=== PATIENT | male | born 1945 | race Two or more races ===

== ENCOUNTER 2023-10-10 13:08 | Inpatient (IN) | payer OTHER ==
[~2023-10-10] VITALS: Ht 172.7 cm; Wt 57.6 kg
[~2023-10-10 13:08] MED LIST: AMIT50TA10 PO; AMLO1TAB22 PO; ATEN-60 PO; ATOR20TA PO; BIOF500C2 PO; CHOL20007 OR; DOCU100T15 PO; DULO20CA PO; HYDR-3547 OR; HYDR25TA4 PO; LOSA100T58 PO; QUET300T24 PO; SENN-36 PO
[2023-10-10 14:10] LABS: Basophils # (auto) 0 10 ^3/uL (0-0.2); Basophils % (auto) 0.3 % (0.0-2.0); Eosinophils # (auto) 0 10 ^3/uL (0-0.8); Eosinophils % (auto) 0.1 % (0.0-7.0); Hematocrit 29.3 % (41.0-53.0); Hemoglobin 9.6 g/dL (13.5-17.5); Lymphocytes # (auto) 0.3 10 ^3/uL (0.4-5.4); Lymphocytes % (auto) 4.4 % (10.0-50.0); Mean Corpuscular Hemoglobin 27.8 pg (28.0-32.0); Mean Corpuscular Hgb Conc. 32.7 g/dL (32.0-36.0); Mean Corpuscular Volume 85.1 fL (80.0-100.0); Monocytes # (auto) 0.3 10 ^3/uL (0-1.3); Monocytes % (auto) 4.2 % (0.0-12.0); Neutrophils # (auto) 6.9 10 ^3/uL (1.6-8.6); Red Blood Cells 3.44 10^6/uL (4.5-5.90); Red Cell Distribution Width 16.1 % (11.8-14.3); White Blood Cell 7.5 10^3/uL (4.4-10.8)
[2023-10-10 14:23] LABS: Alanine Aminotransferase 15 U/L (7-40); Albumin 4.1 g/dL (3.2-4.8); Alkaline Phosphatase 83 U/L (46-116); Anion Gap 12 (5-15); Aspartate Aminotransferase 13 U/L (13-40); BUN/Creatinine Ratio 8.4 (10.0-20.0); Blood Alcohol 8.3 mg/dL (<10); Blood Urea Nitrogen 56 mg/dL (9-23); Calcium 8.4 mg/dL (8.7-10.4); Carbon Dioxide 26 mmol/L (20-30); Chloride 101 mmol/L (98-107); Glucose 198 mg/dL (74-106); Magnesium 2.1 mg/dL (1.6-2.6); Potassium 5.3 mmol/L (3.5-5.1); Sodium 139 mmol/L (136-145)
[2023-10-10 14:24] LABS: Bilirubin, Total 0.8 mg/dL (0.2-1.0); Total Protein 6.7 g/dL (5.7-8.2)
[2023-10-10 14:30] VITALS: PULSE 75; RESP 24; O2SAT 95
[2023-10-10] MEDS ORDERED: FUROSEMIDE 40 MG/4 ML VIAL IV ONE (14:30)
[2023-10-10 14:32] LABS: INR 1.23 (0.9-1.15); Partial Thromboplastin Time 36.2 SEC (24.5-34.5); Prothrombin Time 12.7 sec (9.3-11.8)
[2023-10-10 16:02] LABS: Base Excess -1.5 mmol/L (-2.0-2.0)
[2023-10-10] MEDS ORDERED: ETOMIDATE (2MG/ML) 20ML VIAL IV ONE (16:15)
[2023-10-10] MEDS ORDERED: MIDAZOLAM DRIP 50 mg/50mL 50 ML IV SCH (16:15)
[2023-10-10] MEDS ORDERED: MIDAZOLAM HCL 2MG/2ML 2ml VIAL (1mg/ml) ONE (16:18)
[2023-10-10] MEDS ORDERED: MIDAZOLAM HCL 2MG/2ML 2ml VIAL (1mg/ml) IV ONE (16:30)
[2023-10-10] MEDS: MIDAZOLAM DRIP 50 mg/50mL 50 ML IV SCH ×2 (16:30→19:00)
[2023-10-10 17:20] LABS: Urine Bacteria NONE SEEN /hpf (None Seen); Urine Blood 1+ /uL (Negative); Urine Clarity Clear (Clear); Urine Color Yellow (Yellow); Urine Protein, UAD 3+ (Negative); Urine Specific Gravity 1.012 (1.001-1.035); Urine Sperm PRESENT /hpf (None Seen); Urine Urobilinogen Normal (Negative); Urine WBC 3 /hpf (0 - 3)
[2023-10-10 17:23] LABS: Amphetamine Screen, Urine Neg (NEGATIVE); Barbiturate Scree,Urine Neg (NEGATIVE); Benzodiazephine Screen, Urine Neg (NEGATIVE); Cannabinoid Screen, Urine Neg (NEGATIVE); Cocaine Screen, Urine Neg (NEGATIVE); Opiate Scree,Urine Neg (NEGATIVE); Phencyclidine Screen, Urine Neg (NEGATIVE)
[2023-10-10 17:44] LABS: Base Excess 2.6 mmol/L (-2.0-2.0)
[2023-10-10 17:55] VITALS: BP 126/64; PULSE 54; RESP 24; O2SAT 100
[2023-10-10 18:20] VITALS: O2SAT 100
[2023-10-10 19:30] VITALS: PULSE 55; RESP 24; O2SAT 100
[2023-10-10 20:05] VITALS: BP 144/39; PULSE 55; RESP 24; O2SAT 100
[2023-10-10] MEDS ORDERED: fentaNYL CITRATE 100 MCG/2 ML VL IV ONE (20:15)
[2023-10-10] MEDS ORDERED: DEXTROSE (50%) 50ML SYRG IV PRN (20:45)
[2023-10-10] MEDS ORDERED: NITROGLYCERIN 0.4 MG SL TAB SL PRN (20:45)
[2023-10-10] MEDS ORDERED: MORPHINE SULFATE INJ 2 MG/ml SYRG IV PRN (20:45)
[2023-10-10] MEDS: DOXYCYCLINE 100MG/250ML 250 ML IV SCH (21:35)
[2023-10-10] MEDS: InsuLIN REG 1unit/0.01ml Soln (100units/ml) SC SCH (22:00)
[2023-10-10 22:01] VITALS: BP 179/34; PULSE 54; RESP 24; O2SAT 100
[2023-10-10] MEDS: fentaNYL Drip 2500mCg/250mlNS 250 ML IV SCH (22:11)
[2023-10-10] MEDS: ACCU-CHEK COMFORT CURVE STRIP VI SCH (22:17)
[2023-10-10] MEDS: hydrALAZINE HCL 20 MG/ML VL IV PRN (22:33)
[2023-10-10 22:37] LABS: COVID19 ANTIGEN SOFIA FIA NEGATIVE (NEGATIVE); Rapid Influenza A Negative (Negative); Rapid Influenza B Negative (Negative)
[2023-10-11] VITALS (80 sets, daily range): BP systolic 100–151; BP diastolic 31–52; PULSE 45–59; RESP 6–24; TEMP 96.4–99.3; O2SAT 96–100
[2023-10-11] MEDS: MIDAZOLAM DRIP 50 mg/50mL 50 ML IV SCH ×6 (00:05→20:26)
[2023-10-11] MEDS ORDERED: FUROSEMIDE 20 MG/2 ML VIAL IV SCH (06:00)
[2023-10-11 06:18] LABS: Hemoglobin 7.5 g/dL (13.5-17.5); Mean Corpuscular Hgb Conc. 32.9 g/dL (32.0-36.0); Nucleated Red Blood Cells % 0.1 %; Red Cell Distribution Width 15.9 % (11.8-14.3); White Blood Cell 5.2 10^3/uL (4.4-10.8)
[2023-10-11 06:22] LABS: Basophils # (auto) 0 10 ^3/uL (0-0.2); Basophils % (auto) 0.8 % (0.0-2.0); Eosinophils # (auto) 0 10 ^3/uL (0-0.8); Eosinophils % (auto) 0.4 % (0.0-7.0); Hematocrit 22.8 % (41.0-53.0); Lymphocytes # (auto) 0.9 10 ^3/uL (0.4-5.4); Lymphocytes % (auto) 17.6 % (10.0-50.0); Monocytes # (auto) 0.4 10 ^3/uL (0-1.3); Monocytes % (auto) 7.1 % (0.0-12.0); Neutrophils # (auto) 3.9 10 ^3/uL (1.6-8.6); Neutrophils % (auto) 74.1 % (37.0-80.0); Red Blood Cells 2.68 10^6/uL (4.5-5.90)
[2023-10-11 06:36] LABS: Alkaline Phosphatase 57 U/L (46-116); Anion Gap 11 (5-15); Aspartate Aminotransferase 9 U/L (13-40); BUN/Creatinine Ratio 6.5 (10.0-20.0); Blood Urea Nitrogen 49 mg/dL (9-23); Calcium 7.7 mg/dL (8.7-10.4); Carbon Dioxide 25 mmol/L (20-30); Chloride 103 mmol/L (98-107); Glucose 82 mg/dL (74-106); Potassium 4.3 mmol/L (3.5-5.1); Sodium 139 mmol/L (136-145)
[2023-10-11 06:37] LABS: Bilirubin, Total 0.7 mg/dL (0.2-1.0); Total Protein 5.2 g/dL (5.7-8.2)
[2023-10-11] MEDS: InsuLIN REG 1unit/0.01ml Soln (100units/ml) SC SCH ×4 (06:45→22:00)
[2023-10-11] MEDS: ACCU-CHEK COMFORT CURVE STRIP VI SCH ×4 (06:45→22:00)
[2023-10-11 06:52] LABS: Alanine Aminotransferase < 9 U/L (7-40)
[2023-10-11] MEDS ORDERED: SODIUM CHL 0.9% 1000 ML BAG XX ONE (07:00)
[2023-10-11 08:01] LABS: Base Excess 2.6 mmol/L (-2.0-2.0)
[2023-10-11] MEDS: FUROSEMIDE 20 MG/2 ML VIAL IV SCH ×3 (10:00→17:50)
[2023-10-11] MEDS ORDERED: ENOXAPARIN SOD 30 MG/0.3 ML SYRINGE SC SCH (10:00)
[2023-10-11] MEDS ORDERED: cefTRIAXone 1GM/50ML D5W 50 ML IV ONE (10:35)
[2023-10-11] MEDS: PANTOPRAZOLE 40 MG/10 ML VIAL INJ IV SCH (11:19)
[2023-10-11] MEDS: cefTRIAXone 1GM/50ML D5W 50 ML IV SCH (11:22)
[2023-10-11 11:35] LABS: Base Excess 3.6 mmol/L (-2.0-2.0)
[2023-10-11] MEDS: DOXYCYCLINE 100MG/250ML 250 ML IV SCH ×2 (11:36→20:26)
[2023-10-11] MEDS: IPRATROPIUM BROM 0.5 MG/2.5ML INH SOL NEB SCH ×2 (11:46→18:33)
[2023-10-11] MEDS: ALBUTEROL SULF 2.5 MG/0.5ML(0.5%) NEB SOLN NEB SCH ×2 (11:46→18:33)
[2023-10-11 12:20] LABS: Triglycerides 76 mg/dL (< 150)
[2023-10-11 12:21] LABS: LDL Cholesterol 39 mg/dL (< 100)
[2023-10-11 12:22] LABS: Cholesterol 92 mg/dL (< 200); HDL Cholesterol 35 mg/dL (40-59)
[2023-10-11] MEDS ORDERED: ALBUMIN 25% 100 ML IV ONE ×3 (14:00→14:15)
[2023-10-11] MEDS ORDERED: EPOETIN ALFA-EPBX 4,000 UNIT/ML VIAL SC ONE (21:00)
[2023-10-11] MEDS: SODIUM FERR GLUC 62.5MG/5ML 125 MG in SODIUM CHL 0.9% 100 ML IV SCH (21:00)
[2023-10-11 21:03] LABS: Triglycerides 100 mg/dL (< 150)
[2023-10-11 21:04] LABS: LDL Cholesterol 44 mg/dL (< 100)
[2023-10-11 21:05] LABS: Cholesterol 99 mg/dL (< 200); HDL Cholesterol 31 mg/dL (40-59)
[2023-10-11] MEDS: fentaNYL Drip 2500mCg/250mlNS 250 ML IV SCH (21:45)
[2023-10-12] VITALS (107 sets, daily range): BP systolic 105–158; BP diastolic 27–87; PULSE 56–109; RESP 11–22; TEMP 97.5–99.3; O2SAT 96–100
[2023-10-12] MEDS: IPRATROPIUM BROM 0.5 MG/2.5ML INH SOL NEB SCH ×4 (00:09→18:32)
[2023-10-12] MEDS: ALBUTEROL SULF 2.5 MG/0.5ML(0.5%) NEB SOLN NEB SCH ×4 (00:09→18:32)
[2023-10-12] MEDS: MIDAZOLAM DRIP 50 mg/50mL 50 ML IV SCH ×4 (01:44→16:18)
[2023-10-12 03:59] LABS: Basophils # (auto) 0 10 ^3/uL (0-0.2); Eosinophils # (auto) 0.1 10 ^3/uL (0-0.8); Lymphocytes # (auto) 0.7 10 ^3/uL (0.4-5.4); Mean Corpuscular Volume 85.1 fL (80.0-100.0); Monocytes # (auto) 0.4 10 ^3/uL (0-1.3); Monocytes % (auto) 6.6 % (0.0-12.0); Red Cell Distribution Width 15.6 % (11.8-14.3); White Blood Cell 6.7 10^3/uL (4.4-10.8)
[2023-10-12 04:02] LABS: Basophils % (auto) 0.4 % (0.0-2.0); Eosinophils % (auto) 1.3 % (0.0-7.0); Hematocrit 24.1 % (41.0-53.0); Lymphocytes % (auto) 10.3 % (10.0-50.0); Mean Corpuscular Hemoglobin 28.1 pg (28.0-32.0); Neutrophils # (auto) 5.4 10 ^3/uL (1.6-8.6); Neutrophils % (auto) 81.4 % (37.0-80.0); Red Blood Cells 2.83 10^6/uL (4.5-5.90)
[2023-10-12 04:04] LABS: Chloride 101 mmol/L (98-107); Potassium 4.7 mmol/L (3.5-5.1); Sodium 140 mmol/L (136-145)
[2023-10-12 04:05] LABS: Anion Gap 16 (5-15); Carbon Dioxide 23 mmol/L (20-30)
[2023-10-12 04:06] LABS: Calcium 8.5 mg/dL (8.5-10.1)
[2023-10-12 04:10] LABS: Glucose 85 mg/dL (74-106); INR 1.23 (0.9-1.15); Partial Thromboplastin Time 44.8 SEC (24.5-34.5); Prothrombin Time 12.7 sec (9.3-11.8)
[2023-10-12 04:11] LABS: Blood Urea Nitrogen 60 mg/dL (9-23)
[2023-10-12 04:12] LABS: % Iron Saturation 23.4 % (20-55)
[2023-10-12] MEDS: FUROSEMIDE 20 MG/2 ML VIAL IV SCH ×2 (05:50→17:30)
[2023-10-12] MEDS: ACCU-CHEK COMFORT CURVE STRIP VI SCH ×4 (05:50→22:25)
[2023-10-12] MEDS: InsuLIN REG 1unit/0.01ml Soln (100units/ml) SC SCH ×4 (05:55→22:00)
[2023-10-12 07:46] LABS: Base Excess -1.4 mmol/L (-2.0-2.0)
[2023-10-12] MEDS: cefTRIAXone 1GM/50ML D5W 50 ML IV SCH (09:03)
[2023-10-12] MEDS: DOXYCYCLINE 100MG/250ML 250 ML IV SCH ×2 (09:06→22:25)
[2023-10-12] MEDS ORDERED: ENOXAPARIN SOD 30 MG/0.3 ML SYRINGE SC SCH (10:00)
[2023-10-12] MEDS ORDERED: AMIODARONE HCL 200 MG TAB PO ONE (10:45)
[2023-10-12] MEDS ORDERED: LIDOCAINE 1% (LOCAL ANESTH.) PF 5ml SDV ONE (10:49)
[2023-10-12] MEDS: PANTOPRAZOLE 40 MG/10 ML VIAL INJ IV SCH (11:09)
[2023-10-12] MEDS: SODIUM FERR GLUC 62.5MG/5ML 125 MG in SODIUM CHL 0.9% 100 ML IV SCH (12:09)
[2023-10-12 12:49] LABS: Body Fluid Polymorphonuclear 10 % (0-25); Body Fluid Red Blood Cells 170 CUMM (0-2000); Body Fluid White Blood Cells 25 CUMM (0-200)
[2023-10-12] MEDS: DexmedeTOMIDine 200 MCG in D5W 5% 48 ML IV SCH (13:00)
[2023-10-12] MEDS: fentaNYL Drip 2500mCg/250mlNS 250 ML IV SCH (21:45)
[2023-10-12] MEDS: AMIODARONE HCL 200 MG TAB PO SCH (22:25)
[2023-10-13] VITALS (118 sets, daily range): BP systolic 87–154; BP diastolic 22–68; PULSE 57–114; RESP 11–26; TEMP 96.3–100.2; O2SAT 97–100
[2023-10-13] MEDS: IPRATROPIUM BROM 0.5 MG/2.5ML INH SOL NEB SCH ×4 (00:25→18:29)
[2023-10-13] MEDS: ALBUTEROL SULF 2.5 MG/0.5ML(0.5%) NEB SOLN NEB SCH ×4 (00:25→18:29)
[2023-10-13] MEDS: DexmedeTOMIDine 200 MCG in D5W 5% 48 ML IV SCH ×3 (01:20→22:46)
[2023-10-13] MEDS: MIDAZOLAM DRIP 50 mg/50mL 50 ML IV SCH ×5 (01:44→22:54)
[2023-10-13 03:59] LABS: Basophils # (auto) 0 10 ^3/uL (0-0.2); Basophils % (auto) 0.4 % (0.0-2.0); Eosinophils # (auto) 0.2 10 ^3/uL (0-0.8); Eosinophils % (auto) 2.9 % (0.0-7.0); Hematocrit 26.1 % (41.0-53.0); Hemoglobin 8.5 g/dL (13.5-17.5); Lymphocytes # (auto) 0.7 10 ^3/uL (0.4-5.4); Lymphocytes % (auto) 9.7 % (10.0-50.0); Mean Corpuscular Hemoglobin 27.8 pg (28.0-32.0); Mean Corpuscular Hgb Conc. 32.5 g/dL (32.0-36.0); Mean Corpuscular Volume 85.5 fL (80.0-100.0); Monocytes # (auto) 0.5 10 ^3/uL (0-1.3); Monocytes % (auto) 6.4 % (0.0-12.0); Neutrophils # (auto) 5.7 10 ^3/uL (1.6-8.6); Neutrophils % (auto) 80.6 % (37.0-80.0); Nucleated Red Blood Cells % 0.2 %; Red Blood Cells 3.06 10^6/uL (4.5-5.90); Red Cell Distribution Width 15.3 % (11.8-14.3)
[2023-10-13 04:04] LABS: Anion Gap 13 (5-15); Carbon Dioxide 24 mmol/L (20-30); Chloride 100 mmol/L (98-107); Potassium 4.8 mmol/L (3.5-5.1); Sodium 137 mmol/L (136-145)
[2023-10-13 04:05] LABS: Calcium 8.3 mg/dL (8.7-10.4)
[2023-10-13 04:10] LABS: BUN/Creatinine Ratio 6.9 (10.0-20.0); Blood Urea Nitrogen 69 mg/dL (9-23); Glucose 91 mg/dL (74-106)
[2023-10-13 04:11] LABS: INR 1.22 (0.9-1.15); Partial Thromboplastin Time 44.6 SEC (24.5-34.5); Prothrombin Time 12.6 sec (9.3-11.8)
[2023-10-13] MEDS: FUROSEMIDE 20 MG/2 ML VIAL IV SCH ×2 (05:30→18:00)
[2023-10-13] MEDS: ACCU-CHEK COMFORT CURVE STRIP VI SCH ×4 (05:30→21:14)
[2023-10-13] MEDS: InsuLIN REG 1unit/0.01ml Soln (100units/ml) SC SCH ×4 (05:35→21:14)
[2023-10-13] MEDS: ALBUMIN 25% 100 ML IV PRN ×2 (06:05→06:45)
[2023-10-13] MEDS ORDERED: NOREPINEPHRINE 8 MG/250ML KIT 250 ML IV ONE (06:56)
[2023-10-13] MEDS ORDERED: SODIUM CHL 0.9% 1000 ML BAG XX ONE (07:00)
[2023-10-13] MEDS: NOREPINEPHRINE 8 MG/250ML KIT 250 ML IV SCH (08:55)
[2023-10-13] MEDS ORDERED: ETOMIDATE (2MG/ML) 20ML VIAL IV ONE ×2 (09:56→10:00)
[2023-10-13] MEDS ORDERED: ROCURONIUM 10MG/ML 10ML VIAL IV ONE (09:56)
[2023-10-13] MEDS: cefTRIAXone 1GM/50ML D5W 50 ML IV SCH (10:53)
[2023-10-13] MEDS: DOXYCYCLINE 100MG/250ML 250 ML IV SCH ×2 (10:53→21:05)
[2023-10-13] MEDS: PANTOPRAZOLE 40 MG/10 ML VIAL INJ IV SCH (11:21)
[2023-10-13] MEDS: AMIODARONE HCL 200 MG TAB PO SCH ×2 (11:22→21:05)
[2023-10-13 13:58] LABS: Base Excess 5.7 mmol/L (-2.0-2.0)
[2023-10-13] MEDS: SODIUM FERR GLUC 62.5MG/5ML 125 MG in SODIUM CHL 0.9% 100 ML IV SCH (14:05)
[2023-10-13] MEDS: fentaNYL Drip 2500mCg/250mlNS 250 ML IV SCH (15:07)
[2023-10-13 15:11] LABS: Body Fluid Polymorphonuclear 18 % (0-25); Body Fluid Red Blood Cells 338 CUMM (0-2000); Body Fluid White Blood Cells 50 CUMM (0-200)
[2023-10-13] MEDS ORDERED: EPOETIN ALFA-EPBX 10,000 UNIT/1ML VIAL SC ONE (21:00)
[2023-10-14] VITALS (97 sets, daily range): BP systolic 85–143; BP diastolic 21–74; PULSE 56–117; RESP 14–28; TEMP 97.3–98.8; O2SAT 97–100
[2023-10-14] MEDS: IPRATROPIUM BROM 0.5 MG/2.5ML INH SOL NEB SCH ×4 (00:27→18:21)
[2023-10-14] MEDS: ALBUTEROL SULF 2.5 MG/0.5ML(0.5%) NEB SOLN NEB SCH ×4 (00:27→18:21)
[2023-10-14] MEDS: MIDAZOLAM DRIP 50 mg/50mL 50 ML IV SCH ×4 (01:26→20:30)
[2023-10-14 04:08] LABS: Basophils # (auto) 0 10 ^3/uL (0-0.2); Basophils % (auto) 0.2 % (0.0-2.0); Eosinophils # (auto) 0.2 10 ^3/uL (0-0.8); Eosinophils % (auto) 3.2 % (0.0-7.0); Hematocrit 27.4 % (41.0-53.0); Hemoglobin 8.9 g/dL (13.5-17.5); Lymphocytes # (auto) 0.4 10 ^3/uL (0.4-5.4); Lymphocytes % (auto) 6.2 % (10.0-50.0); Mean Corpuscular Hemoglobin 27.5 pg (28.0-32.0); Mean Corpuscular Hgb Conc. 32.6 g/dL (32.0-36.0); Mean Corpuscular Volume 84.4 fL (80.0-100.0); Monocytes # (auto) 0.6 10 ^3/uL (0-1.3); Monocytes % (auto) 9.1 % (0.0-12.0); Neutrophils # (auto) 5.7 10 ^3/uL (1.6-8.6); Neutrophils % (auto) 81.3 % (37.0-80.0); Nucleated Red Blood Cells % 0.1 %; Red Blood Cells 3.25 10^6/uL (4.5-5.90); Red Cell Distribution Width 15.5 % (11.8-14.3)
[2023-10-14 04:27] LABS: Anion Gap 10 (5-15); Calcium 8.6 mg/dL (8.7-10.4); Carbon Dioxide 30 mmol/L (20-30); Chloride 98 mmol/L (98-107); Potassium 4.7 mmol/L (3.5-5.1); Sodium 138 mmol/L (136-145)
[2023-10-14 04:33] LABS: BUN/Creatinine Ratio 4.8 (10.0-20.0); Glucose 86 mg/dL (74-106)
[2023-10-14 04:40] LABS: Blood Urea Nitrogen 32 mg/dL (9-23)
[2023-10-14] MEDS: InsuLIN REG 1unit/0.01ml Soln (100units/ml) SC SCH ×4 (05:53→22:00)
[2023-10-14] MEDS: ACCU-CHEK COMFORT CURVE STRIP VI SCH ×4 (05:53→21:56)
[2023-10-14] MEDS: FUROSEMIDE 20 MG/2 ML VIAL IV SCH (05:53)
[2023-10-14] MEDS: NOREPINEPHRINE 8 MG/250ML KIT 250 ML IV SCH (05:53)
[2023-10-14] MEDS: cefTRIAXone 1GM/50ML D5W 50 ML IV SCH (09:00)
[2023-10-14 09:06] LABS: Protein, Body Fluid 2.7 g/dL (.)
[2023-10-14 09:06] LABS: Protein, Body Fluid 2.5 g/dL (.)
[2023-10-14 09:34] LABS: Base Excess 4.1 mmol/L (-2.0-2.0)
[2023-10-14] MEDS: DOXYCYCLINE 100MG/250ML 250 ML IV SCH ×2 (09:39→20:35)
[2023-10-14] MEDS: PANTOPRAZOLE 40 MG/10 ML VIAL INJ IV SCH (09:40)
[2023-10-14] MEDS: AMIODARONE HCL 200 MG TAB PO SCH ×2 (09:40→21:56)
[2023-10-14] MEDS: SODIUM FERR GLUC 62.5MG/5ML 125 MG in SODIUM CHL 0.9% 100 ML IV SCH (13:09)
[2023-10-14] MEDS: FUROSEMIDE 40 MG/4 ML VIAL IV SCH (18:02)
[2023-10-14] MEDS: DexmedeTOMIDine 200 MCG in D5W 5% 48 ML IV SCH ×2 (20:12→21:57)
[2023-10-14] MEDS: fentaNYL Drip 2500mCg/250mlNS 250 ML IV SCH (21:45)
[2023-10-15] VITALS (113 sets, daily range): BP systolic 79–154; BP diastolic 24–64; PULSE 61–106; RESP 12–25; TEMP 96.3–99.3; O2SAT 98–100
[2023-10-15] MEDS: IPRATROPIUM BROM 0.5 MG/2.5ML INH SOL NEB SCH ×4 (00:14→18:28)
[2023-10-15] MEDS: ALBUTEROL SULF 2.5 MG/0.5ML(0.5%) NEB SOLN NEB SCH ×4 (00:14→18:28)
[2023-10-15] MEDS: MIDAZOLAM DRIP 50 mg/50mL 50 ML IV SCH ×5 (01:30→21:30)
[2023-10-15 03:49] LABS: Basophils # (auto) 0 10 ^3/uL (0-0.2); Basophils % (auto) 0.2 % (0.0-2.0); Eosinophils # (auto) 0.1 10 ^3/uL (0-0.8); Eosinophils % (auto) 1.6 % (0.0-7.0); Hematocrit 26.7 % (41.0-53.0); Hemoglobin 8.6 g/dL (13.5-17.5); Lymphocytes # (auto) 0.4 10 ^3/uL (0.4-5.4); Lymphocytes % (auto) 7.2 % (10.0-50.0); Mean Corpuscular Hemoglobin 27.7 pg (28.0-32.0); Mean Corpuscular Hgb Conc. 32.1 g/dL (32.0-36.0); Mean Corpuscular Volume 86.3 fL (80.0-100.0); Monocytes # (auto) 0.4 10 ^3/uL (0-1.3); Monocytes % (auto) 8.2 % (0.0-12.0); Neutrophils # (auto) 4.2 10 ^3/uL (1.6-8.6); Neutrophils % (auto) 82.8 % (37.0-80.0); Nucleated Red Blood Cells % 0.1 %; Red Blood Cells 3.09 10^6/uL (4.5-5.90); Red Cell Distribution Width 15.6 % (11.8-14.3); White Blood Cell 5.1 10^3/uL (4.4-10.8)
[2023-10-15 04:01] LABS: Anion Gap 15 (5-15); Calcium 8.9 mg/dL (8.7-10.4); Carbon Dioxide 25 mmol/L (20-30); Chloride 96 mmol/L (98-107); Potassium 4.6 mmol/L (3.5-5.1); Sodium 136 mmol/L (136-145)
[2023-10-15 04:07] LABS: Glucose 110 mg/dL (74-106)
[2023-10-15 04:15] LABS: Blood Urea Nitrogen 48 mg/dL (9-23)
[2023-10-15] MEDS: FUROSEMIDE 40 MG/4 ML VIAL IV SCH ×2 (05:48→18:11)
[2023-10-15] MEDS: InsuLIN REG 1unit/0.01ml Soln (100units/ml) SC SCH ×4 (06:40→21:47)
[2023-10-15] MEDS: ACCU-CHEK COMFORT CURVE STRIP VI SCH ×4 (06:40→21:46)
[2023-10-15] MEDS ORDERED: SODIUM CHL 0.9% 1000 ML BAG XX ONE (07:00)
[2023-10-15] MEDS: NOREPINEPHRINE 8 MG/250ML KIT 250 ML IV SCH (07:00)
[2023-10-15] MEDS: cefTRIAXone 1GM/50ML D5W 50 ML IV SCH (08:19)
[2023-10-15] MEDS: PANTOPRAZOLE 40 MG/10 ML VIAL INJ IV SCH (09:40)
[2023-10-15] MEDS: AMIODARONE HCL 200 MG TAB PO SCH ×2 (09:40→21:39)
[2023-10-15 10:11] LABS: Base Excess 1.1 mmol/L (-2.0-2.0)
[2023-10-15] MEDS: DOXYCYCLINE 100MG/250ML 250 ML IV SCH ×2 (12:05→21:39)
[2023-10-15] MEDS: SODIUM FERR GLUC 62.5MG/5ML 125 MG in SODIUM CHL 0.9% 100 ML IV SCH (12:11)
[2023-10-15] MEDS: ALBUMIN 25% 100 ML IV PRN ×2 (15:08→15:53)
[2023-10-15] MEDS: DexmedeTOMIDine 200 MCG in D5W 5% 48 ML IV SCH (19:50)
[2023-10-15] MEDS ORDERED: EPOETIN ALFA-EPBX 4,000 UNIT/ML VIAL SC ONE (21:00)
[2023-10-15] MEDS: fentaNYL Drip 2500mCg/250mlNS 250 ML IV SCH (21:45)
[2023-10-16] VITALS (113 sets, daily range): BP systolic 15–182; BP diastolic 24–152; PULSE 72–98; RESP 12–29; TEMP 98.1–99.7; O2SAT 97–100
[2023-10-16] MEDS: IPRATROPIUM BROM 0.5 MG/2.5ML INH SOL NEB SCH ×4 (00:23→18:32)
[2023-10-16] MEDS: ALBUTEROL SULF 2.5 MG/0.5ML(0.5%) NEB SOLN NEB SCH ×4 (00:23→18:32)
[2023-10-16] MEDS: MIDAZOLAM DRIP 50 mg/50mL 50 ML IV SCH ×5 (02:30→22:30)
[2023-10-16 04:23] LABS: Basophils # (auto) 0 10 ^3/uL (0-0.2); Basophils % (auto) 0.3 % (0.0-2.0); Eosinophils # (auto) 0.1 10 ^3/uL (0-0.8); Lymphocytes # (auto) 0.3 10 ^3/uL (0.4-5.4); Monocytes # (auto) 0.4 10 ^3/uL (0-1.3); White Blood Cell 4.9 10^3/uL (4.4-10.8)
[2023-10-16 04:26] LABS: Eosinophils % (auto) 2.3 % (0.0-7.0); Hematocrit 23.9 % (41.0-53.0); Lymphocytes % (auto) 6.5 % (10.0-50.0); Mean Corpuscular Hemoglobin 28.6 pg (28.0-32.0); Mean Corpuscular Hgb Conc. 33.6 g/dL (32.0-36.0); Mean Corpuscular Volume 85.3 fL (80.0-100.0); Monocytes % (auto) 8.9 % (0.0-12.0); Red Cell Distribution Width 15.2 % (11.8-14.3)
[2023-10-16 04:29] LABS: Anion Gap 11 (5-15); Calcium 8.9 mg/dL (8.7-10.4); Carbon Dioxide 29 mmol/L (20-30); Chloride 96 mmol/L (98-107); Sodium 136 mmol/L (136-145)
[2023-10-16 04:35] LABS: BUN/Creatinine Ratio 4.9 (10.0-20.0); Glucose 100 mg/dL (74-106)
[2023-10-16 04:57] LABS: Blood Urea Nitrogen 24 mg/dL (9-23)
[2023-10-16] MEDS: NOREPINEPHRINE 8 MG/250ML KIT 250 ML IV SCH (06:34)
[2023-10-16] MEDS: ACCU-CHEK COMFORT CURVE STRIP VI SCH ×4 (06:34→22:10)
[2023-10-16] MEDS: FUROSEMIDE 40 MG/4 ML VIAL IV SCH ×2 (06:34→17:13)
[2023-10-16] MEDS: InsuLIN REG 1unit/0.01ml Soln (100units/ml) SC SCH ×4 (06:34→22:00)
[2023-10-16] MEDS: cefTRIAXone 1GM/50ML D5W 50 ML IV SCH (09:51)
[2023-10-16] MEDS: AMIODARONE HCL 200 MG TAB PO SCH ×2 (09:51→22:10)
[2023-10-16] MEDS: PANTOPRAZOLE 40 MG/10 ML VIAL INJ IV SCH (09:51)
[2023-10-16] MEDS: DOXYCYCLINE 100MG/250ML 250 ML IV SCH ×2 (10:56→20:44)
[2023-10-16] MEDS: SODIUM FERR GLUC 62.5MG/5ML 125 MG in SODIUM CHL 0.9% 100 ML IV SCH (12:05)
[2023-10-16] MEDS: DexmedeTOMIDine 200 MCG in D5W 5% 48 ML IV SCH (13:36)
[2023-10-16 14:15] LABS: Base Excess 4.9 mmol/L (-2.0-2.0)
[2023-10-16] MEDS: fentaNYL Drip 2500mCg/250mlNS 250 ML IV SCH (21:45)
[2023-10-16] MEDS ORDERED: MIDAZOLAM DRIP 50 mg/50mL 50 ML IV ONE (22:00)
[2023-10-17] VITALS (105 sets, daily range): BP systolic 80–156; BP diastolic 23–123; PULSE 68–129; RESP 10–30; TEMP 98.1–100; O2SAT 97–100
[2023-10-17] MEDS: IPRATROPIUM BROM 0.5 MG/2.5ML INH SOL NEB SCH ×4 (00:33→18:29)
[2023-10-17] MEDS: ALBUTEROL SULF 2.5 MG/0.5ML(0.5%) NEB SOLN NEB SCH ×4 (00:33→18:29)
[2023-10-17] MEDS: DexmedeTOMIDine 200 MCG in D5W 5% 48 ML IV SCH ×2 (03:24→17:33)
[2023-10-17] MEDS: MIDAZOLAM DRIP 50 mg/50mL 50 ML IV SCH ×5 (03:30→23:30)
[2023-10-17] MEDS: ACCU-CHEK COMFORT CURVE STRIP VI SCH ×4 (05:57→22:05)
[2023-10-17] MEDS: FUROSEMIDE 40 MG/4 ML VIAL IV SCH ×2 (05:57→17:32)
[2023-10-17] MEDS: InsuLIN REG 1unit/0.01ml Soln (100units/ml) SC SCH ×4 (07:00→22:00)
[2023-10-17] MEDS ORDERED: SODIUM CHL 0.9% 1000 ML BAG XX ONE (07:00)
[2023-10-17] MEDS: NOREPINEPHRINE 8 MG/250ML KIT 250 ML IV SCH ×2 (07:00→14:00)
[2023-10-17 08:28] LABS: Basophils # (auto) 0 10 ^3/uL (0-0.2); Eosinophils # (auto) 0.1 10 ^3/uL (0-0.8); Lymphocytes # (auto) 0.6 10 ^3/uL (0.4-5.4); Monocytes # (auto) 0.6 10 ^3/uL (0-1.3); Neutrophils # (auto) 5.2 10 ^3/uL (1.6-8.6); Nucleated Red Blood Cells % 0.2 %; White Blood Cell 6.5 10^3/uL (4.4-10.8)
[2023-10-17 08:30] LABS: Basophils % (auto) 0.5 % (0.0-2.0); Eosinophils % (auto) 1.9 % (0.0-7.0); Hematocrit 28.5 % (41.0-53.0); Lymphocytes % (auto) 9.2 % (10.0-50.0); Mean Corpuscular Hemoglobin 27.9 pg (28.0-32.0); Mean Corpuscular Hgb Conc. 31.5 g/dL (32.0-36.0); Mean Corpuscular Volume 88.8 fL (80.0-100.0); Neutrophils % (auto) 79.4 % (37.0-80.0); Red Blood Cells 3.21 10^6/uL (4.5-5.90); Red Cell Distribution Width 15.5 % (11.8-14.3)
[2023-10-17 08:41] LABS: Alanine Aminotransferase 13 U/L (7-40); Albumin 3.7 g/dL (3.2-4.8); Alkaline Phosphatase 51 U/L (46-116); Anion Gap 14 (5-15); Aspartate Aminotransferase 15 U/L (13-40); BUN/Creatinine Ratio 3.6 (10.0-20.0); Blood Urea Nitrogen 25 mg/dL (9-23); Calcium 9.1 mg/dL (8.5-10.1); Carbon Dioxide 25 mmol/L (20-30); Chloride 95 mmol/L (98-107); Glucose 95 mg/dL (74-106); Potassium 4.4 mmol/L (3.5-5.1); Sodium 134 mmol/L (136-145)
[2023-10-17 08:42] LABS: Bilirubin, Total 0.4 mg/dL (0.2-1.0); Total Protein 6.1 g/dL (5.7-8.2)
[2023-10-17 09:08] LABS: Base Excess 3.5 mmol/L (-2.0-2.0)
[2023-10-17] MEDS: PANTOPRAZOLE 40 MG/10 ML VIAL INJ IV SCH (10:27)
[2023-10-17] MEDS: AMIODARONE HCL 200 MG TAB PO SCH ×2 (10:28→22:04)
[2023-10-17] MEDS: HEPARIN SODIUM (PORCINE) 5000 UNITS/ML 1ML VIAL SC SCH ×2 (10:28→22:04)
[2023-10-17] MEDS: cefTRIAXone 1GM/50ML D5W 50 ML IV SCH (10:29)
[2023-10-17] MEDS: DOXYCYCLINE 100MG/250ML 250 ML IV SCH ×2 (12:03→21:22)
[2023-10-17] MEDS: SODIUM FERR GLUC 62.5MG/5ML 125 MG in SODIUM CHL 0.9% 100 ML IV SCH (12:28)
[2023-10-17] MEDS ORDERED: EPOETIN ALFA-EPBX 4,000 UNIT/ML VIAL SC ONE (21:00)
[2023-10-17] MEDS: fentaNYL Drip 2500mCg/250mlNS 250 ML IV SCH (21:45)
[2023-10-18] VITALS (99 sets, daily range): BP systolic 95–157; BP diastolic 12–87; PULSE 66–91; RESP 13–29; TEMP 83.3–100; O2SAT 94–100
[2023-10-18] MEDS: ALBUTEROL SULF 2.5 MG/0.5ML(0.5%) NEB SOLN NEB SCH ×4 (00:20→18:03)
[2023-10-18] MEDS: IPRATROPIUM BROM 0.5 MG/2.5ML INH SOL NEB SCH ×4 (00:20→18:03)
[2023-10-18 04:21] LABS: Anion Gap 11 (5-15); Carbon Dioxide 29 mmol/L (20-30); Chloride 98 mmol/L (98-107); Potassium 3.9 mmol/L (3.5-5.1); Sodium 138 mmol/L (136-145)
[2023-10-18 04:22] LABS: Calcium 8.8 mg/dL (8.7-10.4)
[2023-10-18 04:26] LABS: Basophils # (auto) 0 10 ^3/uL (0-0.2); Basophils % (auto) 0.6 % (0.0-2.0); Eosinophils # (auto) 0.1 10 ^3/uL (0-0.8); Eosinophils % (auto) 1.2 % (0.0-7.0); Hematocrit 28.5 % (41.0-53.0); Hemoglobin 9.3 g/dL (13.5-17.5); Lymphocytes # (auto) 0.5 10 ^3/uL (0.4-5.4); Lymphocytes % (auto) 7.4 % (10.0-50.0); Mean Corpuscular Hemoglobin 27.7 pg (28.0-32.0); Mean Corpuscular Hgb Conc. 32.5 g/dL (32.0-36.0); Mean Corpuscular Volume 85.3 fL (80.0-100.0); Monocytes # (auto) 0.6 10 ^3/uL (0-1.3); Monocytes % (auto) 8.8 % (0.0-12.0); Neutrophils # (auto) 5.4 10 ^3/uL (1.6-8.6); Nucleated Red Blood Cells % 1.3 %; Red Blood Cells 3.34 10^6/uL (4.5-5.90); Red Cell Distribution Width 15.8 % (11.8-14.3); White Blood Cell 6.6 10^3/uL (4.4-10.8)
[2023-10-18 04:27] LABS: BUN/Creatinine Ratio 5.1 (10.0-20.0); Blood Urea Nitrogen 23 mg/dL (9-23); Glucose 104 mg/dL (74-106)
[2023-10-18] MEDS: MIDAZOLAM DRIP 50 mg/50mL 50 ML IV SCH ×6 (04:30→21:30)
[2023-10-18] MEDS: ACCU-CHEK COMFORT CURVE STRIP VI SCH ×4 (06:32→21:29)
[2023-10-18] MEDS: FUROSEMIDE 40 MG/4 ML VIAL IV SCH ×2 (06:32→18:16)
[2023-10-18] MEDS: InsuLIN REG 1unit/0.01ml Soln (100units/ml) SC SCH ×4 (06:42→21:29)
[2023-10-18] MEDS: DexmedeTOMIDine 200 MCG in D5W 5% 48 ML IV SCH ×2 (06:52→20:09)
[2023-10-18 08:34] LABS: Base Excess 2.5 mmol/L (-2.0-2.0)
[2023-10-18] MEDS: PANTOPRAZOLE 40 MG/10 ML VIAL INJ IV SCH (09:33)
[2023-10-18] MEDS: HEPARIN SODIUM (PORCINE) 5000 UNITS/ML 1ML VIAL SC SCH ×2 (09:46→21:26)
[2023-10-18] MEDS: cefTRIAXone 1GM/50ML D5W 50 ML IV SCH (09:47)
[2023-10-18] MEDS: DOXYCYCLINE 100MG/250ML 250 ML IV SCH ×2 (09:47→20:50)
[2023-10-18] MEDS: AMIODARONE HCL 200 MG TAB PO SCH ×2 (13:06→20:50)
[2023-10-18] MEDS: SODIUM FERR GLUC 62.5MG/5ML 125 MG in SODIUM CHL 0.9% 100 ML IV SCH (16:04)
[2023-10-18] MEDS ORDERED: Vital AF 1.2 Cal 1 liter bottle GT SCH (16:15)
[2023-10-18] MEDS: fentaNYL Drip 2500mCg/250mlNS 250 ML IV SCH (20:09)
[2023-10-18] MEDS ORDERED: Nepro With Carb Steady 1 Liter Bottle GT SCH (20:45)
[2023-10-19] VITALS (102 sets, daily range): BP systolic 90–164; BP diastolic 15–94; PULSE 62–142; RESP 10–36; TEMP 92.3–99.1; O2SAT 95–100
[2023-10-19] MEDS: IPRATROPIUM BROM 0.5 MG/2.5ML INH SOL NEB SCH ×4 (00:36→19:20)
[2023-10-19] MEDS: ALBUTEROL SULF 2.5 MG/0.5ML(0.5%) NEB SOLN NEB SCH ×4 (00:36→19:20)
[2023-10-19 03:55] LABS: Basophils # (auto) 0 10 ^3/uL (0-0.2); Basophils % (auto) 0.3 % (0.0-2.0); Eosinophils # (auto) 0.1 10 ^3/uL (0-0.8); Hematocrit 26.4 % (41.0-53.0); Hemoglobin 8.6 g/dL (13.5-17.5); Lymphocytes # (auto) 0.6 10 ^3/uL (0.4-5.4); Lymphocytes % (auto) 8.5 % (10.0-50.0); Mean Corpuscular Hemoglobin 28.1 pg (28.0-32.0); Mean Corpuscular Hgb Conc. 32.4 g/dL (32.0-36.0); Mean Corpuscular Volume 86.8 fL (80.0-100.0); Monocytes # (auto) 0.5 10 ^3/uL (0-1.3); Neutrophils # (auto) 5.5 10 ^3/uL (1.6-8.6); Neutrophils % (auto) 81.2 % (37.0-80.0); Nucleated Red Blood Cells % 0.2 %; Red Blood Cells 3.05 10^6/uL (4.5-5.90); Red Cell Distribution Width 15.4 % (11.8-14.3); White Blood Cell 6.8 10^3/uL (4.4-10.8)
[2023-10-19 04:12] LABS: Alanine Aminotransferase 10 U/L (7-40); Alkaline Phosphatase 56 U/L (46-116); Anion Gap 11 (5-15); BUN/Creatinine Ratio 5.4 (10.0-20.0); Calcium 9.1 mg/dL (8.7-10.4); Carbon Dioxide 29 mmol/L (20-30); Chloride 96 mmol/L (98-107); Glucose 115 mg/dL (74-106); Potassium 3.5 mmol/L (3.5-5.1); Sodium 136 mmol/L (136-145)
[2023-10-19 04:14] LABS: Albumin 3.8 g/dL (3.2-4.8); Aspartate Aminotransferase 10 U/L (13-40); Bilirubin, Total 0.5 mg/dL (0.2-1.0); Total Protein 6.3 g/dL (5.7-8.2)
[2023-10-19 04:21] LABS: Blood Urea Nitrogen 34 mg/dL (9-23)
[2023-10-19] MEDS: FUROSEMIDE 40 MG/4 ML VIAL IV SCH ×2 (06:05→18:00)
[2023-10-19] MEDS: ACCU-CHEK COMFORT CURVE STRIP VI SCH ×4 (06:25→22:43)
[2023-10-19] MEDS: InsuLIN REG 1unit/0.01ml Soln (100units/ml) SC SCH ×4 (06:27→22:00)
[2023-10-19] MEDS ORDERED: SODIUM CHL 0.9% 1000 ML BAG XX ONE (07:00)
[2023-10-19] MEDS: NOREPINEPHRINE 8 MG/250ML KIT 250 ML IV SCH (07:00)
[2023-10-19 07:30] LABS: Base Excess 3.9 mmol/L (-2.0-2.0)
[2023-10-19] MEDS: HEPARIN SODIUM (PORCINE) 5000 UNITS/ML 1ML VIAL SC SCH ×2 (10:00→22:45)
[2023-10-19] MEDS: MIDAZOLAM DRIP 50 mg/50mL 50 ML IV SCH ×3 (10:30→20:30)
[2023-10-19] MEDS: cefTRIAXone 1GM/50ML D5W 50 ML IV SCH (10:53)
[2023-10-19] MEDS: SODIUM FERR GLUC 62.5MG/5ML 125 MG in SODIUM CHL 0.9% 100 ML IV SCH (12:00)
[2023-10-19] MEDS: DOXYCYCLINE 100MG/250ML 250 ML IV SCH ×2 (16:16→22:09)
[2023-10-19] MEDS: AMIODARONE HCL 200 MG TAB PO SCH ×2 (16:25→22:43)
[2023-10-19] MEDS: PANTOPRAZOLE 40 MG/10 ML VIAL INJ IV SCH (16:25)
[2023-10-19] MEDS ORDERED: EPOETIN ALFA-EPBX 4,000 UNIT/ML VIAL SC ONE (21:00)
[2023-10-20] VITALS (44 sets, daily range): BP systolic 114–168; BP diastolic 17–127; PULSE 59–66; RESP 17–25; TEMP 97.8–98.3; O2SAT 85–100
[2023-10-20] MEDS: IPRATROPIUM BROM 0.5 MG/2.5ML INH SOL NEB SCH ×4 (00:41→18:48)
[2023-10-20] MEDS: ALBUTEROL SULF 2.5 MG/0.5ML(0.5%) NEB SOLN NEB SCH ×4 (00:41→18:48)
[2023-10-20] MEDS: MIDAZOLAM DRIP 50 mg/50mL 50 ML IV SCH ×4 (01:30→09:08)
[2023-10-20 05:48] LABS: Basophils # (auto) 0 10 ^3/uL (0-0.2); Basophils % (auto) 0.3 % (0.0-2.0); Eosinophils # (auto) 0.2 10 ^3/uL (0-0.8); Eosinophils % (auto) 2.7 % (0.0-7.0); Hematocrit 28.9 % (41.0-53.0); Hemoglobin 9.2 g/dL (13.5-17.5); Lymphocytes # (auto) 0.6 10 ^3/uL (0.4-5.4); Mean Corpuscular Hemoglobin 28.8 pg (28.0-32.0); Mean Corpuscular Hgb Conc. 31.9 g/dL (32.0-36.0); Mean Corpuscular Volume 90.2 fL (80.0-100.0); Monocytes # (auto) 0.5 10 ^3/uL (0-1.3); Monocytes % (auto) 7.8 % (0.0-12.0); Neutrophils # (auto) 5.1 10 ^3/uL (1.6-8.6); Neutrophils % (auto) 79.2 % (37.0-80.0); Nucleated Red Blood Cells % 0.2 %; Red Cell Distribution Width 15.7 % (11.8-14.3); White Blood Cell 6.5 10^3/uL (4.4-10.8)
[2023-10-20 06:00] LABS: Anion Gap 9 (5-15); Carbon Dioxide 29 mmol/L (20-30); Chloride 101 mmol/L (98-107); Potassium 3.7 mmol/L (3.5-5.1); Sodium 139 mmol/L (136-145)
[2023-10-20 06:01] LABS: Calcium 9.5 mg/dL (8.5-10.1)
[2023-10-20 06:06] LABS: BUN/Creatinine Ratio 4.2 (10.0-20.0); Blood Urea Nitrogen 20 mg/dL (9-23); Glucose 96 mg/dL (74-106)
[2023-10-20] MEDS: ACCU-CHEK COMFORT CURVE STRIP VI SCH ×4 (06:31→21:44)
[2023-10-20] MEDS: FUROSEMIDE 40 MG/4 ML VIAL IV SCH ×2 (06:46→18:51)
[2023-10-20] MEDS: NOREPINEPHRINE 8 MG/250ML KIT 250 ML IV SCH (06:48)
[2023-10-20] MEDS: InsuLIN REG 1unit/0.01ml Soln (100units/ml) SC SCH ×4 (06:48→21:42)
[2023-10-20] MEDS: PANTOPRAZOLE 40 MG/10 ML VIAL INJ IV SCH (07:57)
[2023-10-20] MEDS: HEPARIN SODIUM (PORCINE) 5000 UNITS/ML 1ML VIAL SC SCH ×2 (07:58→21:49)
[2023-10-20] MEDS: AMIODARONE HCL 200 MG TAB PO SCH ×2 (07:59→21:42)
[2023-10-20] MEDS: DOXYCYCLINE 100MG/250ML 250 ML IV SCH ×2 (08:00→20:35)
[2023-10-20] MEDS: cefTRIAXone 1GM/50ML D5W 50 ML IV SCH (08:00)
[2023-10-20] MEDS: hydrALAZINE HCL 20 MG/ML VL IV PRN (20:35)
[2023-10-21] VITALS (19 sets, daily range): BP systolic 126–147; BP diastolic 34–51; PULSE 60–72; RESP 18–21; TEMP 98–98.6; O2SAT 92–100
[2023-10-21] MEDS: ALBUTEROL SULF 2.5 MG/0.5ML(0.5%) NEB SOLN NEB SCH ×4 (00:12→19:12)
[2023-10-21] MEDS: IPRATROPIUM BROM 0.5 MG/2.5ML INH SOL NEB SCH ×4 (00:12→19:12)
[2023-10-21] MEDS: FUROSEMIDE 40 MG/4 ML VIAL IV SCH ×2 (06:00→19:21)
[2023-10-21 06:22] LABS: Basophils # (auto) 0.1 10 ^3/uL (0-0.2); Basophils % (auto) 0.9 % (0.0-2.0); Eosinophils # (auto) 0.2 10 ^3/uL (0-0.8); Eosinophils % (auto) 2.8 % (0.0-7.0); Hematocrit 29.7 % (41.0-53.0); Lymphocytes # (auto) 0.6 10 ^3/uL (0.4-5.4); Mean Corpuscular Hemoglobin 27.7 pg (28.0-32.0); Mean Corpuscular Hgb Conc. 30.3 g/dL (32.0-36.0); Mean Corpuscular Volume 91.3 fL (80.0-100.0); Monocytes # (auto) 0.4 10 ^3/uL (0-1.3); Monocytes % (auto) 6.4 % (0.0-12.0); Neutrophils % (auto) 79.9 % (37.0-80.0); Nucleated Red Blood Cells % 0.3 %; Red Blood Cells 3.25 10^6/uL (4.5-5.90); Red Cell Distribution Width 16.5 % (11.8-14.3); White Blood Cell 6.2 10^3/uL (4.4-10.8)
[2023-10-21 06:27] LABS: Calcium 8.8 mg/dL (8.7-10.4); Chloride 100 mmol/L (98-107); Potassium 4.2 mmol/L (3.5-5.1); Sodium 139 mmol/L (136-145)
[2023-10-21 06:28] LABS: Anion Gap 12 (5-15); Carbon Dioxide 27 mmol/L (20-30)
[2023-10-21] MEDS: ACCU-CHEK COMFORT CURVE STRIP VI SCH ×4 (06:32→23:56)
[2023-10-21 06:33] LABS: BUN/Creatinine Ratio 6.6 (10.0-20.0); Glucose 127 mg/dL (74-106)
[2023-10-21 06:34] LABS: Blood Urea Nitrogen 41 mg/dL (9-23)
[2023-10-21] MEDS: InsuLIN REG 1unit/0.01ml Soln (100units/ml) SC SCH ×4 (06:34→22:00)
[2023-10-21] MEDS ORDERED: SODIUM CHL 0.9% 1000 ML BAG XX ONE (07:00)
[2023-10-21] MEDS: cefTRIAXone 1GM/50ML D5W 50 ML IV SCH (09:25)
[2023-10-21] MEDS: AMIODARONE HCL 200 MG TAB PO SCH ×2 (10:34→23:43)
[2023-10-21] MEDS: PANTOPRAZOLE 40 MG/10 ML VIAL INJ IV SCH (10:35)
[2023-10-21] MEDS: DOXYCYCLINE 100MG/250ML 250 ML IV SCH ×2 (10:39→23:17)
[2023-10-21] MEDS: HEPARIN SODIUM (PORCINE) 5000 UNITS/ML 1ML VIAL SC SCH ×2 (10:43→23:41)
[2023-10-21] MEDS ORDERED: EPOETIN ALFA-EPBX 10,000 UNIT/1ML VIAL SC ONE (21:00)
[2023-10-22] VITALS (19 sets, daily range): BP systolic 115–143; BP diastolic 41–55; PULSE 60–98; RESP 16–22; TEMP 97.9–98.6; O2SAT 91–100
[2023-10-22] MEDS: IPRATROPIUM BROM 0.5 MG/2.5ML INH SOL NEB SCH ×5 (00:25→23:15)
[2023-10-22] MEDS: ALBUTEROL SULF 2.5 MG/0.5ML(0.5%) NEB SOLN NEB SCH ×5 (00:25→23:15)
[2023-10-22 06:19] LABS: Basophils # (auto) 0 10 ^3/uL (0-0.2); Basophils % (auto) 0.6 % (0.0-2.0); Eosinophils # (auto) 0.1 10 ^3/uL (0-0.8); Eosinophils % (auto) 1.4 % (0.0-7.0); Hematocrit 28.4 % (41.0-53.0); Hemoglobin 9.2 g/dL (13.5-17.5); Lymphocytes # (auto) 0.9 10 ^3/uL (0.4-5.4); Lymphocytes % (auto) 11.5 % (10.0-50.0); Mean Corpuscular Hgb Conc. 32.4 g/dL (32.0-36.0); Mean Corpuscular Volume 86.5 fL (80.0-100.0); Monocytes # (auto) 0.6 10 ^3/uL (0-1.3); Monocytes % (auto) 7.7 % (0.0-12.0); Neutrophils # (auto) 6.1 10 ^3/uL (1.6-8.6); Neutrophils % (auto) 78.8 % (37.0-80.0); Nucleated Red Blood Cells % 0.1 %; Red Blood Cells 3.29 10^6/uL (4.5-5.90); Red Cell Distribution Width 16.3 % (11.8-14.3); White Blood Cell 7.8 10^3/uL (4.4-10.8)
[2023-10-22] MEDS: FUROSEMIDE 40 MG/4 ML VIAL IV SCH ×2 (06:41→17:51)
[2023-10-22] MEDS: InsuLIN REG 1unit/0.01ml Soln (100units/ml) SC SCH ×4 (06:42→23:51)
[2023-10-22] MEDS: ACCU-CHEK COMFORT CURVE STRIP VI SCH ×3 (06:42→17:49)
[2023-10-22 06:44] LABS: Albumin 3.6 g/dL (3.2-4.8); Alkaline Phosphatase 75 U/L (46-116); Anion Gap 12 (5-15); Aspartate Aminotransferase 10 U/L (13-40); BUN/Creatinine Ratio 5.1 (10.0-20.0); Blood Urea Nitrogen 22 mg/dL (9-23); Calcium 9.2 mg/dL (8.7-10.4); Carbon Dioxide 28 mmol/L (20-30); Chloride 98 mmol/L (98-107); Glucose 152 mg/dL (74-106); Potassium 3.1 mmol/L (3.5-5.1); Sodium 138 mmol/L (136-145)
[2023-10-22 06:45] LABS: Bilirubin, Total 0.3 mg/dL (0.2-1.0); Total Protein 6.2 g/dL (5.7-8.2)
[2023-10-22 06:59] LABS: Alanine Aminotransferase < 9 U/L (7-40)
[2023-10-22] MEDS: DOXYCYCLINE 100MG/250ML 250 ML IV SCH ×3 (09:52→22:17)
[2023-10-22] MEDS: AMIODARONE HCL 200 MG TAB PO SCH ×2 (09:52→23:57)
[2023-10-22] MEDS: PANTOPRAZOLE 40 MG/10 ML VIAL INJ IV SCH (09:52)
[2023-10-22] MEDS: cefTRIAXone 1GM/50ML D5W 50 ML IV SCH ×2 (09:52→12:30)
[2023-10-22] MEDS: HEPARIN SODIUM (PORCINE) 5000 UNITS/ML 1ML VIAL SC SCH ×2 (10:00→23:32)
[2023-10-22] MEDS: POTASSIUM CHL 20MEQ/100ML 100 ML IV SCH ×3 (15:13→19:04)
[2023-10-23] VITALS (13 sets, daily range): BP systolic 122–144; BP diastolic 50–78; PULSE 62–68; RESP 18–22; TEMP 98.2; O2SAT 92–100
[2023-10-23] MEDS: ACCU-CHEK COMFORT CURVE STRIP VI SCH ×4 (02:59→16:26)
[2023-10-23] MEDS: FUROSEMIDE 40 MG/4 ML VIAL IV SCH ×2 (05:40→17:26)
[2023-10-23 06:07] LABS: Chloride 100 mmol/L (98-107); Potassium 3.9 mmol/L (3.5-5.1); Sodium 137 mmol/L (136-145)
[2023-10-23 06:08] LABS: Anion Gap 10 (5-15); Calcium 9.5 mg/dL (8.5-10.1); Carbon Dioxide 27 mmol/L (20-30)
[2023-10-23 06:09] LABS: Basophils # (auto) 0 10 ^3/uL (0-0.2); Basophils % (auto) 0.4 % (0.0-2.0); Eosinophils # (auto) 0.2 10 ^3/uL (0-0.8); Eosinophils % (auto) 1.7 % (0.0-7.0); Hematocrit 27.7 % (41.0-53.0); Lymphocytes % (auto) 10.6 % (10.0-50.0); Mean Corpuscular Hgb Conc. 32.5 g/dL (32.0-36.0); Mean Corpuscular Volume 86.4 fL (80.0-100.0); Monocytes # (auto) 0.6 10 ^3/uL (0-1.3); Monocytes % (auto) 6.7 % (0.0-12.0); Neutrophils # (auto) 7.3 10 ^3/uL (1.6-8.6); Neutrophils % (auto) 80.6 % (37.0-80.0); Nucleated Red Blood Cells % 0.3 %; Red Cell Distribution Width 16.4 % (11.8-14.3)
[2023-10-23 06:13] LABS: BUN/Creatinine Ratio 5.7 (10.0-20.0); Glucose 109 mg/dL (74-106)
[2023-10-23 06:25] LABS: Blood Urea Nitrogen 34 mg/dL (9-23)
[2023-10-23] MEDS: IPRATROPIUM BROM 0.5 MG/2.5ML INH SOL NEB SCH ×3 (06:37→19:12)
[2023-10-23] MEDS: ALBUTEROL SULF 2.5 MG/0.5ML(0.5%) NEB SOLN NEB SCH ×3 (06:37→19:12)
[2023-10-23] MEDS: InsuLIN REG 1unit/0.01ml Soln (100units/ml) SC SCH ×3 (07:00→16:26)
[2023-10-23] MEDS: AMIODARONE HCL 200 MG TAB PO SCH (09:37)
[2023-10-23] MEDS: PANTOPRAZOLE 40 MG/10 ML VIAL INJ IV SCH (09:37)
[2023-10-23] MEDS: HEPARIN SODIUM (PORCINE) 5000 UNITS/ML 1ML VIAL SC SCH (09:38)
[2023-10-24] MEDS ORDERED: SODIUM CHL 0.9% 1000 ML BAG XX ONE (07:00)
[2023-10-24] MEDS ORDERED: EPOETIN ALFA-EPBX 4,000 UNIT/ML VIAL SC ONE (21:00)
== END 2023-10-23 21:55 | disposition short-term general hospital (02) | DRG 207 ==
LOC: ER 13:08 → TELE 20:56 → ICU WEST 10-11 09:12 → DOU IN ICU 10-19 17:43 → TELE-WESTW 10-20 23:20
PROVIDERS: ADMIT Internal Medicine; ATTEND Internal Medicine
PROC: 5A1955Z Respiratory Ventilation, Greater than 96 Consecutive Hours (ICD-10-PCS; principal; 2023-10-10)
PROC: 0BH17EZ Insertion of Endotracheal Airway into Trachea, Via Natural or Artificial Opening (ICD-10-PCS; 2023-10-10)
PROC: 5A1D70Z Performance of Urinary Filtration, Intermittent, Less than 6 Hours Per Day (ICD-10-PCS; 2023-10-11)
PROC: 0W993ZZ Drainage of Right Pleural Cavity, Percutaneous Approach (ICD-10-PCS; 2023-10-12)
PROC: 0W9B3ZZ Drainage of Left Pleural Cavity, Percutaneous Approach (ICD-10-PCS; 2023-10-13)
PROC: 5A1D70Z Performance of Urinary Filtration, Intermittent, Less than 6 Hours Per Day (ICD-10-PCS; 2023-10-13)
PROC: 0W9930Z Drainage of Right Pleural Cavity with Drainage Device, Percutaneous Approach (ICD-10-PCS; 2023-10-15)
PROC: 5A1D70Z Performance of Urinary Filtration, Intermittent, Less than 6 Hours Per Day (ICD-10-PCS; 2023-10-15)
PROC: 5A1D70Z Performance of Urinary Filtration, Intermittent, Less than 6 Hours Per Day (ICD-10-PCS; 2023-10-17)
PROC: 5A09357 Assistance with Respiratory Ventilation, Less than 24 Consecutive Hours, Continuous Positive Airway Pressure (ICD-10-PCS; 2023-10-19)
PROC: 5A1D70Z Performance of Urinary Filtration, Intermittent, Less than 6 Hours Per Day (ICD-10-PCS; 2023-10-19)
PROC: 5A1D70Z Performance of Urinary Filtration, Intermittent, Less than 6 Hours Per Day (ICD-10-PCS; 2023-10-21)
PROC: 05H933Z Insertion of Infusion Device into Right Brachial Vein, Percutaneous Approach (ICD-10-PCS; 2023-10-22)
PROC: B54MZZA Ultrasonography of Right Upper Extremity Veins, Guidance (ICD-10-PCS; 2023-10-22)
DX: J96.21 Acute and chronic respiratory failure with hypoxia (principal); J15.69 Pneumonia due to other Gram-negative bacteria; N18.6 End stage renal disease; I50.43 Acute on chronic combined systolic (congestive) and diastolic (congestive) heart failure; G92.8 Other toxic encephalopathy; I13.2 Hypertensive heart and chronic kidney disease with heart failure and with stage 5 chronic kidney disease, or end stage renal disease; G91.8 Other hydrocephalus; E87.20 Acidosis, unspecified; J93.9 Pneumothorax, unspecified; I48.20 Chronic atrial fibrillation, unspecified; J91.8 Pleural effusion in other conditions classified elsewhere; Z99.11 Dependence on respirator [ventilator] status; Z68.1 Body mass index [BMI] 19.9 or less, adult; J96.22 Acute and chronic respiratory failure with hypercapnia; Z20.822 Contact with and (suspected) exposure to COVID-19; E11.22 Type 2 diabetes mellitus with diabetic chronic kidney disease; E66.9 Obesity, unspecified; D63.1 Anemia in chronic kidney disease; I27.20 Pulmonary hypertension, unspecified; E78.5 Hyperlipidemia, unspecified; I48.0 Paroxysmal atrial fibrillation; Z98.2 Presence of cerebrospinal fluid drainage device; Z99.2 Dependence on renal dialysis; Z79.84 Long term (current) use of oral hypoglycemic drugs; Z83.3 Family history of diabetes mellitus; Z82.49 Family history of ischemic heart disease and other diseases of the circulatory system
CPT/HCPCS: 31500; 36415; 36600; 70450; 71045; 76604; 76942; 80048; 80053; 80061; 80307; 80320; 81001; 82140; 82805; 82962; 83036; 83540; 83550; 83605; 83735; 83880; 83986; 84443; 84484; 85025; 85379; 85610; 85730; 87040; 87070; 87081; 87086; 87205; 87340; 87426; 87804; 89051; 90935; 93005; 93306; 94002; 94003; 94640; C1724; C9113; G0378; J1642; J1815; J2250; J3480; J3490; J7060; P9047